=== PATIENT | male | born 1945 | race Caucasian/White ===

== ENCOUNTER 2017-05-11 20:00 | Emergency (ER) | payer OTHER ==
[2017-05-11 20:10] VITALS: BP 161/86
--- NOTE | 2017-05-11 20:22 | ERNOTE ---
Abdominal HPI - Narrative Date of Service: 05/11/17 - General Chief Complaint: Abdominal Pain Time Seen by Provider: 05/11/17 20:10 Source: patient - Immun/Allergies/Home Medications Immunizatons: IMMUNIZATION HX Immunizations Up to Date Yes History of Influenza Vaccine No Hx Pneumococcal Vaccination Yes Allergies/Adverse Reactions: Allergies No Known Allergies Allergy (Unverified 01/04/16 10:58) Home Medications: HOME MEDICATIONS Aspirin [Aspirin Enteric Coated] 81 mg PO DAILY 01/04/16 [Last Taken Unknown] Lisinopril [Zestril] 10 mg PO DAILY 01/04/16 [Last Taken Unknown] metFORMIN HCL [Glucophage] 500 mg PO BIDWM 01/04/16 [Last Taken Unknown] - History of Present Illness Narrative: This is a 71-year-old male who comes to the emergency department complaining of right upper quadrant abdominal pain/flank pain. Patient says for the last 4 days he's been having some mild discomfort. He says "I felt it go" 3 or 4 days ago. He doesn't know exactly what he was doing but he remembers when the pain started. He feels a little bit nauseated but he does not have any vomiting he has no fever or chills. Nothing makes the symptoms better. He's been taking Tylenol next been helping a tiny bit. Nothing seems to make it worse except pushing on the area. The patient denies any other complaints. He has had his gallbladder out Review of Systems - Review of Systems Constitutional: Present: no symptoms reported EYE: Present: no symptoms reported ENT: Present: no symptoms reported Respiratory: Present: no symptoms reported Cardiology: Present: no symptoms reported Gastrointestinal/Abdominal: Present: nausea, constipation. Absent: vomiting, diarrhea Genitourinary: Present: no symptoms reported Musculoskeletal: Present: no symptoms reported Skin: Present: no symptoms reported Neurological: Present: no symptoms reported Endocrine: Present: no symptoms reported Hematologic/Lymphatic: Present: no symptoms reported Psych: Present: no symptoms reported All Other Systems: All systems neg except as marked - Patient's Past Medical History Patient History - Medical: Diabetes Type 2 Patient History - Cardiac/Respiratory: Hypertension Patient History - Cancer: Prostate, Other Patient History - Surgical Procedures: Cholecystectomy Patient History - Other: None - Family History Mother Family History - Medical: , Rheumatoid Arthritis Family History - Cardiac/Respiratory: Hypertension - Social History Living Situations: home Abuse History: No History of abuse Psych History: No pertinent hx Smoking Status: Never smoker Have you smoked in the past 12 months: No Alcohol Use: none Drug Use: none - Immunizations Immunizations Up to Date: Yes Hx Pneumococcal Vaccination: Yes History of Influenza Vaccine: No Physical Exam - Physical Exam General Appearance: Present: wd/wn, alert, no apparent distress Head Exam: Present: normal inspection, no evidence of injury Eye Exam: Normal inspection: bilateral, PERRL: bilateral, EOMI: bilateral Ears, Nose, Throat: Present: normal ENT inspection, normal pharynx Neck: Present: normal inspection, nontender Respiratory: Present: no respiratory distress, normal breath sounds, no accessory muscle use, lungs clear Cardiovascular/Chest: Present: regular rate, rhythm, no murmur, normal peripheral pulses Gastrointestinal/Abdominal: Present: soft, other - the patient has significant tenderness in the gallbladder fossa. No rebound or guarding. No pain in the lower quadrants. Back Exam: Present: normal inspection, normal range of motion, no CVA tenderness , no vertebral tenderness Extremity Exam: Present: normal inspection, normal range of motion, no edema Neurological Exam: Present: alert, oriented, normal mood/affect, no motor/ sensory deficits Skin Exam: Present: normal color, warm/dry Lymphatic Exam: Present: no adenopathy ED Progress - Results and Orders Patient's Lab Results:: I have reviewed the patient's lab results. - Vital Signs Patient's Vital Signs:: I have reviewed the patient's vital signs. Vital Signs: Vital Signs 05/11/17 20:04 Temperature 36.5 C Pulse Rate 78 Respiratory 18 Rate Blood Pressure 161/86 O2 Sat by Pulse 93 Oximetry - X-Ray X-Ray #1 X-Ray: abdomen Interpretation: Interp. by me X-ray Comments: Significant stool retention. Nonobstructive bowel gas pattern. Clips are noted in the gallbladder fossa location - Progress/Reassessment Chief Complaint: Abdominal Pain Progress:: Unchanged Progress Note-Subjective: 05/11/17 21:04 Patient still has mild abdominal pain. He admits that he is had 1 very small bowel movement recently. He does have the urge to defecate. He does not take anything to help soften his stool. We talked about whether a CAT scan would be necessary but with laboratories being normal and having a possible alternative diagnosis I do not believe that CAT scan imaging would be appropriate for this patient Departure Clinical Impression: Constipation, Abdominal pain - Departure Disposition: Home self-care Condition: Good Instructions: Constipation, Adult, [id number], Abdominal Pain, Adult, Easy-to -Read Additional Instructions: As we discussed all of the labs we have done here are normal. Your x-ray does show a significant amount of constipation, with stool in the location where you' re having the pain. I suspect that year pain is being caused by distention of your colon from the stool. I have given urine and amount that I want you to use when you get home. I also want you to stop at the pharmacy and molded goods spot picker some Colace as well as some bisacodyl (Dulcolax) this will help soften her stool and help move a little bit better. Call your family doctor set up a follow-up appointment. If she developed fever, difficulty breathing, vomiting, bloody stool, or any new concerning symptoms. Return to the ER Referrals: Parris Disla MD [Primary Care Provider] -
[2017-05-11 20:31] LABS: Hematocrit 34.9 % (42.0-52.0); Hemoglobin 11.7 gm/dL (13.5-18.0); Mean Cell Volume 99.7 fl (78-100); Mean Corpuscular Hemoglobin 33.4 pg (27-31); Mean Corpuscular Hgb Conc 33.5 g/dl (32-36); Mean Platelet Volume 10.3 fl (6.0-9.5); Neutrophil # 4.1 K/mm3 (1.3-6.0); Neutrophil % 56.1 % (42-75.0); Platelet Count 270 K/mm3 (150-450); Red Cell Distribution Width 14.6 % (11.5-14.0); White Blood Count 7.4 K/mm3 (4.0-10.5)
[2017-05-11 20:45] LABS: Albumin * 3.2 gm/dl (3.4-5.0); BUN/Creatinine Ratio 14.6 (9.0-21.6); Bilirubin, Total 0.2 mg/dL (0.0-1.1); Ca. Corrected For Albumin 8.8 mg/dL (8.4-10.2); Calcium * 8.5 mg/dL (7.9-10.9); Total Protein 9.8 gm/dL (6.2-8.2)
[2017-05-11 21:04] LABS: Urine Appearance Clear; Urine Bilirubin Negative (NEGATIVE); Urine Blood 150 /ul (NEGATIVE); Urine Color Yellow; Urine Ketone Negative (NEGATIVE); Urine Nitrite Negative (NEGATIVE); Urine Protein Negative (NEGATIVE); Urine Urobilinogen Normal (NORMAL); Urine pH 5.5 pH (5.0-7.0)
[2017-05-11 21:05] LABS: Urine Bacteria None Seen; Urine RBC 0-5 /hpf (0-5); Urine WBC 0-5 /hpf (0-5)
== END 2017-05-11 21:10 | disposition home or self-care (01) ==
LOC: ER 20:00
DX: K59.00 Constipation, unspecified (principal); R10.11 Right upper quadrant pain; E11.9 Type 2 diabetes mellitus without complications; I10 Essential (primary) hypertension; Z85.46 Personal history of malignant neoplasm of prostate